=== PATIENT | female | born 1970 | race Caucasian/White ===

== ENCOUNTER 2024-02-01 12:40 | Emergency (ER) | payer MEDICARE, BC ==
[2024-02-01] MEDS: Ondansetron 4 MG/2 ML SDV IVPUSH ONE ×2 (14:06→17:34)
[2024-02-01] MEDS: fentaNYL 50 MCG/ML SDV IVPUSH ONE ×2 (14:06→16:14)
[2024-02-01] MEDS: Sodium Chloride 0.9% 1,000 ML IV ONE (14:06)
[2024-02-01 14:20] LABS: BASOPHILS ABSOLUTE AUTO 0.04 K/uL (0.00-0.20); BASOPHILS PERCENT AUTO 0.5 % (0.0-1.0); EOSINOPHILS PERCENT AUTO 2.6 % (0.0-6.0); HEMATOCRIT 40.3 % (37.0-47.0); HEMOGLOBIN 13.9 g/dL (12.0-16.0); IMMATURE GRAN ABSOLUTE AUTO 0.03 K/uL (0.00-0.05); IMMATURE GRAN PERCENT AUTO 0.4 % (0.0-0.4); LYMPHOCYTES ABSOLUTE AUTO 2.45 K/uL (1.00-4.80); LYMPHOCYTES PERCENT AUTO 31.8 % (24.0-44.0); MEAN CORPUSCULAR HGB CONC 34.5 g/dL (32.0-36.0); MEAN CORPUSCULAR VOLUME 89.8 fL (83.0-99.0); MEAN PLATELET VOLUME 9.8 fL (9.4-12.3); MONOCYTES ABSOLUTE AUTO 0.52 K/uL (0.00-0.80); MONOCYTES PERCENT AUTO 6.7 % (0.0-8.0); NEUTROPHILS ABSOLUTE AUTO 4.47 K/uL (1.80-7.70); PLATELET COUNT,PLT 268 K/uL (150-400); RED BLOOD CELL COUNT 4.49 M/uL (4.10-5.30); WHITE BLOOD CELL COUNT,WBC 7.71 K/uL (3.9-11.3)
[2024-02-01 14:26] LABS: APPEARANCE,URINE CLEAR; BILIRUBIN,URINE NEGATIVE (NEGATIVE); COLOR,URINE YELLOW; GLUCOSE,URINE NEGATIVE (NEGATIVE); KETONES,URINE NEGATIVE (NEGATIVE); LEUKOCYTE ESTERASE,URINE NEGATIVE (NEGATIVE); NITRITE,URINE NEGATIVE (NEGATIVE); OCCULT BLOOD,URINE NEGATIVE (NEGATIVE); PH,URINE 6.5 (5.0-8.0); PROTEIN,URINE NEGATIVE (NEGATIVE); UROBILINOGEN,URINE 0.2 EU/dL (<2.0)
[2024-02-01 14:46] LABS: A/G RATIO 0.9 (0.9-1.6); ALBUMIN 3.4 g/dL (3.4-5.0); BILIRUBIN TOTAL 0.2 mg/dL (0.2-1.0); CALCIUM 8.4 mg/dL (8.5-10.1); CARBON DIOXIDE,CO2 25.7 mmol/L (21.0-32.0); CREATININE 1.1 mg/dL (0.6-1.0); EST CRCL DRUG DOSING (CG) 45.7 mL/min; POTASSIUM,K 3.9 mmol/L (3.5-5.1); PROTEIN TOTAL,TP 7.1 g/dL (6.4-8.2)
[2024-02-01 17:24] LABS: RBC,CSF 0 /uL (0-0); WBC,CSF 0 /uL (0-5)
[2024-02-01 19:29] LABS: APPEARANCE CSF CLEAR; COLOR,CSF COLORLESS
[2024-02-01] MEDS: Acetaminophen/Butalbital/Caffeine 325-50-40 MG Tab PO ONE (20:07)
== END 2024-02-01 20:21 | disposition home or self-care (01) ==
LOC: MW.ED 12:40
DX: G93.2 Benign intracranial hypertension (principal); Z88.5 Allergy status to narcotic agent; Z88.8 Allergy status to other drugs, medicaments and biological substances; Z79.899 Other long term (current) drug therapy
CPT/HCPCS: 36415; 62270; 70450; 80053; 81003; 82945; 84157; 85025; 87070; 87205; 89050; 96361; 96374; 96375; 96376; 99284; A9270; J2405; J3010; J7030

== ENCOUNTER 2024-02-01 23:09 | Emergency (ER) | payer BC, MEDICARE ==
[2024-02-02] MEDS: Sodium Chloride 0.9% 1,000 ML IV ONE ×2 (00:51→01:07)
[2024-02-02] MEDS: Magnesium Sulfate/Water 2 GM in Premix Bag 1 BAG IV ONE (00:52)
[2024-02-02] MEDS: Metoclopramide 10 MG/2 ML SDV IVPUSH ONE (00:52)
[2024-02-02] MEDS: Ketorolac 30 MG/ML SDV IVPUSH ONE (00:52)
[2024-02-02] MEDS: diphenhydrAMINE 50 MG/ML SDV IVPUSH ONE (00:52)
[2024-02-02 01:24] LABS: BASOPHILS ABSOLUTE AUTO 0.05 K/uL (0.00-0.20); BASOPHILS PERCENT AUTO 0.7 % (0.0-1.0); EOSINOPHILS ABSOLUTE AUTO 0.17 K/uL (0.00-0.45); EOSINOPHILS PERCENT AUTO 2.2 % (0.0-6.0); HEMATOCRIT 36.7 % (37.0-47.0); HEMOGLOBIN 12.4 g/dL (12.0-16.0); IMMATURE GRAN ABSOLUTE AUTO 0.03 K/uL (0.00-0.05); IMMATURE GRAN PERCENT AUTO 0.4 % (0.0-0.4); LYMPHOCYTES PERCENT AUTO 34.1 % (24.0-44.0); MEAN CORPUSCULAR HEMOGLOBIN 30.8 pg (28.0-32.0); MEAN CORPUSCULAR HGB CONC 33.8 g/dL (32.0-36.0); MEAN CORPUSCULAR VOLUME 91.1 fL (83.0-99.0); MONOCYTES ABSOLUTE AUTO 0.58 K/uL (0.00-0.80); MONOCYTES PERCENT AUTO 7.6 % (0.0-8.0); PLATELET COUNT,PLT 253 K/uL (150-400); RED BLOOD CELL COUNT 4.03 M/uL (4.10-5.30); WHITE BLOOD CELL COUNT,WBC 7.63 K/uL (3.9-11.3)
[2024-02-02 02:03] LABS: A/G RATIO 0.9 (0.9-1.6); ALBUMIN 2.9 g/dL (3.4-5.0); BILIRUBIN TOTAL 0.2 mg/dL (0.2-1.0); CALCIUM 7.7 mg/dL (8.5-10.1); CREATININE 1.1 mg/dL (0.6-1.0); EST CRCL DRUG DOSING (CG) 45.7 mL/min; POTASSIUM,K 3.6 mmol/L (3.5-5.1)
== END 2024-02-02 02:26 | disposition home or self-care (01) ==
LOC: MW.ED 23:09
DX: G93.2 Benign intracranial hypertension (principal); Z88.5 Allergy status to narcotic agent; Z88.8 Allergy status to other drugs, medicaments and biological substances; Z79.899 Other long term (current) drug therapy; Z86.19 Personal history of other infectious and parasitic diseases; Z75.8 Other problems related to medical facilities and other health care
CPT/HCPCS: 36415; 70450; 80053; 83735; 85025; 96365; 96375; 99284; J1200; J1885; J2765; J3475; J7030

== ENCOUNTER 2024-02-16 02:57 | Emergency (ER) | payer MEDICARE, BC ==
[2024-02-16] MEDS: Metoclopramide 10 MG/2 ML SDV IVPUSH ONE (03:30)
[2024-02-16] MEDS: Sodium Chloride 0.9% 1,000 ML IV ONE (03:30)
[2024-02-16] MEDS: HYDROmorphone 1 MG/ML Syringe IVPUSH ONE (03:30)
[2024-02-16 03:31] LABS: BASOPHILS ABSOLUTE AUTO 0.05 K/uL (0.00-0.20); BASOPHILS PERCENT AUTO 0.7 % (0.0-1.0); EOSINOPHILS ABSOLUTE AUTO 0.29 K/uL (0.00-0.45); EOSINOPHILS PERCENT AUTO 4.3 % (0.0-6.0); HEMATOCRIT 39.7 % (37.0-47.0); HEMOGLOBIN 13.4 g/dL (12.0-16.0); IMMATURE GRAN ABSOLUTE AUTO 0.01 K/uL (0.00-0.05); IMMATURE GRAN PERCENT AUTO 0.1 % (0.0-0.4); LYMPHOCYTES PERCENT AUTO 37.5 % (24.0-44.0); MEAN CORPUSCULAR HEMOGLOBIN 30.5 pg (28.0-32.0); MEAN CORPUSCULAR HGB CONC 33.8 g/dL (32.0-36.0); MEAN CORPUSCULAR VOLUME 90.2 fL (83.0-99.0); MEAN PLATELET VOLUME 9.8 fL (9.4-12.3); MONOCYTES ABSOLUTE AUTO 0.53 K/uL (0.00-0.80); MONOCYTES PERCENT AUTO 7.9 % (0.0-8.0); NEUTROPHILS ABSOLUTE AUTO 3.29 K/uL (1.80-7.70); NEUTROPHILS PERCENT AUTO 49.5 % (41.0-71.0); PLATELET COUNT,PLT 277 K/uL (150-400); WHITE BLOOD CELL COUNT,WBC 6.67 K/uL (3.9-11.3)
[2024-02-16 03:47] LABS: INR 0.97 (0.86-1.11)
[2024-02-16 03:52] LABS: ALBUMIN 3.6 g/dL (3.4-5.0); BILIRUBIN TOTAL 0.4 mg/dL (0.2-1.0); CALCIUM 8.9 mg/dL (8.5-10.1); CARBON DIOXIDE,CO2 24.5 mmol/L (21.0-32.0); EST CRCL DRUG DOSING (CG) 54.89 mL/min; POTASSIUM,K 3.3 mmol/L (3.5-5.1); PROTEIN TOTAL,TP 7.1 g/dL (6.4-8.2)
[2024-02-16 05:10] LABS: APPEARANCE CSF CLEAR; COLOR,CSF COLORLESS
[2024-02-16 05:17] LABS: WBC,CSF 0 /uL (0-5)
[2024-02-16 05:18] LABS: RBC,CSF 1 /uL (0-0)
[2024-02-16 05:19] LABS: RBC,CSF 0 /uL (0-0); WBC,CSF 0 /uL (0-5)
== END 2024-02-16 05:44 | disposition home or self-care (01) ==
LOC: MW.ED 02:57
DX: R51.9 Headache, unspecified (principal); Z88.5 Allergy status to narcotic agent; Z88.8 Allergy status to other drugs, medicaments and biological substances; Z79.899 Other long term (current) drug therapy
CPT/HCPCS: 36415; 62270; 80053; 82945; 82947; 84157; 85025; 85610; 87070; 87205; 89050; 96361; 96374; 96375; 99284; J1170; J2765; J7030

== ENCOUNTER 2024-03-22 17:11 | Emergency (ER) | payer BC, MEDICARE ==
[2024-03-22 17:28] LABS: BASOPHILS ABSOLUTE AUTO 0.03 K/uL (0.00-0.20); BASOPHILS PERCENT AUTO 0.4 % (0.0-1.0); EOSINOPHILS ABSOLUTE AUTO 0.19 K/uL (0.00-0.45); EOSINOPHILS PERCENT AUTO 2.7 % (0.0-6.0); HEMOGLOBIN 14.6 g/dL (12.0-16.0); IMMATURE GRAN ABSOLUTE AUTO 0.01 K/uL (0.00-0.05); IMMATURE GRAN PERCENT AUTO 0.1 % (0.0-0.4); LYMPHOCYTES ABSOLUTE AUTO 2.48 K/uL (1.00-4.80); LYMPHOCYTES PERCENT AUTO 35.7 % (24.0-44.0); MEAN CORPUSCULAR VOLUME 88.3 fL (83.0-99.0); MEAN PLATELET VOLUME 10.1 fL (9.4-12.3); MONOCYTES PERCENT AUTO 7.2 % (0.0-8.0); NEUTROPHILS ABSOLUTE AUTO 3.74 K/uL (1.80-7.70); NEUTROPHILS PERCENT AUTO 53.9 % (41.0-71.0); PLATELET COUNT,PLT 295 K/uL (150-400); RED BLOOD CELL COUNT 4.87 M/uL (4.10-5.30); WHITE BLOOD CELL COUNT,WBC 6.95 K/uL (3.9-11.3)
[2024-03-22] MEDS: Metoclopramide 10 MG/2 ML SDV IVPUSH ONE (17:33)
[2024-03-22] MEDS: Sodium Chloride 0.9% 1,000 ML IV ONE (17:33)
[2024-03-22] MEDS: HYDROmorphone 1 MG/ML Syringe IVPUSH ONE (17:33)
[2024-03-22 17:59] LABS: A/G RATIO 1.1 (0.9-1.6); ALBUMIN 4.1 g/dL (3.4-5.0); BILIRUBIN TOTAL 0.3 mg/dL (0.2-1.0); CALCIUM 8.6 mg/dL (8.5-10.1); CARBON DIOXIDE,CO2 28.2 mmol/L (21.0-32.0); EST CRCL DRUG DOSING (CG) 52.58 mL/min; POTASSIUM,K 3.5 mmol/L (3.5-5.1); PROTEIN TOTAL,TP 7.9 g/dL (6.4-8.2)
[2024-03-22] MEDS: HYDROmorphone 0.5 MG/0.5 ML Syringe IVPUSH ONE (20:08)
[2024-03-22 20:53] LABS: APPEARANCE CSF CLEAR; COLOR,CSF COLORLESS; RBC,CSF 3 /uL (0-0); WBC,CSF 0 /uL (0-5)
== END 2024-03-22 21:57 | disposition home or self-care (01) ==
LOC: MW.ED 17:11
DX: G93.2 Benign intracranial hypertension (principal); Z90.49 Acquired absence of other specified parts of digestive tract; Z90.710 Acquired absence of both cervix and uterus; Z75.8 Other problems related to medical facilities and other health care; Z79.899 Other long term (current) drug therapy; Z88.5 Allergy status to narcotic agent; Z88.8 Allergy status to other drugs, medicaments and biological substances
CPT/HCPCS: 36415; 80053; 82945; 84157; 85025; 87070; 87205; 89050; 96361; 96374; 96375; 96376; 99284; J1170; J2765; J7030

== ENCOUNTER 2024-04-07 11:23 | Emergency (ER) | payer BC, MEDICARE ==
[2024-04-07] MEDS: Sodium Chloride 0.9% 1,000 ML IV ONE (12:17)
[2024-04-07] MEDS: Metoclopramide 10 MG/2 ML SDV IVPUSH ONE (12:18)
[2024-04-07] MEDS: HYDROmorphone 1 MG/ML Syringe IVPUSH ONE ×2 (12:23→15:24)
[2024-04-07 13:09] LABS: BASOPHILS ABSOLUTE AUTO 0.04 K/uL (0.00-0.20); BASOPHILS PERCENT AUTO 0.6 % (0.0-1.0); EOSINOPHILS ABSOLUTE AUTO 0.13 K/uL (0.00-0.45); EOSINOPHILS PERCENT AUTO 1.8 % (0.0-6.0); HEMATOCRIT 41.1 % (37.0-47.0); HEMOGLOBIN 14.1 g/dL (12.0-16.0); IMMATURE GRAN ABSOLUTE AUTO 0.02 K/uL (0.00-0.05); IMMATURE GRAN PERCENT AUTO 0.3 % (0.0-0.4); LYMPHOCYTES ABSOLUTE AUTO 2.23 K/uL (1.00-4.80); LYMPHOCYTES PERCENT AUTO 31.5 % (24.0-44.0); MEAN CORPUSCULAR HEMOGLOBIN 29.3 pg (28.0-32.0); MEAN CORPUSCULAR HGB CONC 34.3 g/dL (32.0-36.0); MEAN CORPUSCULAR VOLUME 85.4 fL (83.0-99.0); MEAN PLATELET VOLUME 10.4 fL (9.4-12.3); MONOCYTES ABSOLUTE AUTO 0.55 K/uL (0.00-0.80); MONOCYTES PERCENT AUTO 7.8 % (0.0-8.0); PLATELET COUNT,PLT 277 K/uL (150-400); RED BLOOD CELL COUNT 4.81 M/uL (4.10-5.30); WHITE BLOOD CELL COUNT,WBC 7.07 K/uL (3.9-11.3)
[2024-04-07 13:16] LABS: INR 1.05 (0.86-1.11)
[2024-04-07] MEDS: Gadobenate Dimeglumine 529 MG/ML 20 ML SDV IVPUSH ONE (13:16)
[2024-04-07 13:20] LABS: A/G RATIO 1.1 (0.9-1.6); ALBUMIN 3.8 g/dL (3.4-5.0); BILIRUBIN TOTAL 0.5 mg/dL (0.2-1.0); CALCIUM 8.7 mg/dL (8.5-10.1); CARBON DIOXIDE,CO2 27.7 mmol/L (21.0-32.0); CREATININE 0.7 mg/dL (0.6-1.0); EST CRCL DRUG DOSING (CG) 75.12 mL/min; POTASSIUM,K 3.8 mmol/L (3.5-5.1); PROTEIN TOTAL,TP 7.2 g/dL (6.4-8.2)
[2024-04-07] MEDS: Promethazine 25 MG/ML SDV IM ONE (14:14)
[2024-04-07] MEDS: Iopamidol 755 MG/ML 500 ML Multipack Bottle IVPUSH STA (15:36)
[2024-04-07] MEDS: diphenhydrAMINE 50 MG/ML SDV IVPUSH STA (17:16)
[2024-04-07 17:24] LABS: CORONAVIRUS COVID-19 NAA NEGATIVE (NEGATIVE); INFLUENZA A NAA NEGATIVE (NEGATIVE); INFLUENZA B NAA NEGATIVE (NEGATIVE); RESPIRATORY SYNCYTIAL VIR NAA NEGATIVE (NEGATIVE)
[2024-04-07 19:02] LABS: RBC,CSF 0 /uL (0-0); WBC,CSF 0 /uL (0-5)
[2024-04-07 19:04] LABS: APPEARANCE CSF CLEAR; COLOR,CSF COLORLESS
[2024-04-07 19:25] LABS: APPEARANCE CSF CLEAR; COLOR,CSF COLORLESS; RBC,CSF 0 /uL (0-0); WBC,CSF 1 /uL (0-5)
== END 2024-04-07 19:22 | disposition home or self-care (01) ==
LOC: MW.ED 11:23
DX: R51.9 Headache, unspecified (principal); Z88.5 Allergy status to narcotic agent; Z79.899 Other long term (current) drug therapy; Z86.16 Personal history of COVID-19; Z90.710 Acquired absence of both cervix and uterus; Z90.49 Acquired absence of other specified parts of digestive tract; Z87.891 Personal history of nicotine dependence
CPT/HCPCS: 0241U; 36415; 62270; 70460; 70553; 71045; 80053; 82945; 84157; 85025; 85610; 87070; 87205; 89050; 96361; 96372; 96374; 96375; 96376; 99284; A9577; J1170; J1200; J2550; J2765; J7030; Q9967

== ENCOUNTER 2024-09-16 15:20 | Emergency (ER) | payer BC, MEDICARE ==
[2024-09-16] MEDS: Prochlorperazine 10 MG/2 ML SDV IVPUSH ONE (17:15)
[2024-09-16] MEDS: Ketorolac 30 MG/ML SDV IVPUSH ONE (17:15)
[2024-09-16] MEDS: Sodium Chloride 0.9% 1,000 ML IV ONE (17:15)
[2024-09-16] MEDS: diphenhydrAMINE 50 MG/ML SDV IVPUSH ONE (17:15)
[2024-09-16 17:27] LABS: BASOPHILS ABSOLUTE AUTO 0.05 K/uL (0.00-0.20); BASOPHILS PERCENT AUTO 0.7 % (0.0-1.0); EOSINOPHILS PERCENT AUTO 2.9 % (0.0-6.0); HEMATOCRIT 41.2 % (37.0-47.0); HEMOGLOBIN 14.6 g/dL (12.0-16.0); IMMATURE GRAN ABSOLUTE AUTO 0.01 K/uL (0.00-0.05); IMMATURE GRAN PERCENT AUTO 0.1 % (0.0-0.4); LYMPHOCYTES ABSOLUTE AUTO 2.14 K/uL (1.00-4.80); LYMPHOCYTES PERCENT AUTO 30.7 % (24.0-44.0); MEAN CORPUSCULAR HEMOGLOBIN 30.5 pg (28.0-32.0); MEAN CORPUSCULAR HGB CONC 35.4 g/dL (32.0-36.0); MEAN CORPUSCULAR VOLUME 86.2 fL (83.0-99.0); MEAN PLATELET VOLUME 10.1 fL (9.4-12.3); MONOCYTES ABSOLUTE AUTO 0.43 K/uL (0.00-0.80); MONOCYTES PERCENT AUTO 6.2 % (0.0-8.0); NEUTROPHILS ABSOLUTE AUTO 4.13 K/uL (1.80-7.70); NEUTROPHILS PERCENT AUTO 59.4 % (41.0-71.0); PLATELET COUNT,PLT 249 K/uL (150-400); RED BLOOD CELL COUNT 4.78 M/uL (4.10-5.30); WHITE BLOOD CELL COUNT,WBC 6.96 K/uL (3.9-11.3)
[2024-09-16 18:05] LABS: CALCIUM 8.8 mg/dL (8.5-10.1); CARBON DIOXIDE,CO2 20.6 mmol/L (21.0-32.0); EST CRCL DRUG DOSING (CG) 51.96 mL/min; POTASSIUM,K 3.6 mmol/L (3.5-5.1)
== END 2024-09-16 19:36 | disposition home or self-care (01) ==
LOC: MW.ED 15:20
DX: R51.9 Headache, unspecified (principal); Z90.49 Acquired absence of other specified parts of digestive tract; Z90.710 Acquired absence of both cervix and uterus; Z88.5 Allergy status to narcotic agent; Z88.8 Allergy status to other drugs, medicaments and biological substances
CPT/HCPCS: 36415; 80048; 85025; 96361; 96374; 96375; 99284; J0780; J1200; J1885; J7030; 99283

== ENCOUNTER 2025-06-08 12:58 | Emergency (ER) | payer MEDICARE, BC ==
[2025-06-08] MEDS: Ketorolac 30 MG/ML SDV IM ONE (15:00)
[2025-06-08 15:20] LABS: BASOPHILS ABSOLUTE AUTO 0.02 K/uL (0.00-0.20); BASOPHILS PERCENT AUTO 0.3 % (0.0-1.0); EOSINOPHILS ABSOLUTE AUTO 0.15 K/uL (0.00-0.45); EOSINOPHILS PERCENT AUTO 2.6 % (0.0-6.0); IMMATURE GRAN ABSOLUTE AUTO 0.01 K/uL (0.00-0.05); IMMATURE GRAN PERCENT AUTO 0.2 % (0.0-0.4); LYMPHOCYTES ABSOLUTE AUTO 2.07 K/uL (1.00-4.80); LYMPHOCYTES PERCENT AUTO 36.0 % (24.0-44.0); MEAN PLATELET VOLUME 10.2 fL (9.4-12.3); MONOCYTES ABSOLUTE AUTO 0.40 K/uL (0.00-0.80); MONOCYTES PERCENT AUTO 7.0 % (0.0-8.0); NEUTROPHILS ABSOLUTE AUTO 3.10 K/uL (1.80-7.70); NEUTROPHILS PERCENT AUTO 53.9 % (41.0-71.0); NRBC ABSOLUTE 0.00 K/uL (0.00-0.02); NRBC PERCENT 0.0 /100WBC (0.0-0.2); PLATELET COUNT,PLT 226 K/uL (150-400); RED BLOOD CELL COUNT 4.77 M/uL (4.10-5.30); WHITE BLOOD CELL COUNT,WBC 5.75 K/uL (3.9-11.3)
[2025-06-08 15:50] LABS: BLOOD UREA NITROGEN,BUN 12.0 mg/dL (7.0-18.0); CARBON DIOXIDE,CO2 30.4 mmol/L (21.0-32.0); CHLORIDE,CL 106.0 mmol/L (98-107); CREATININE 0.7 mg/dL (0.6-1.0); EST CRCL DRUG DOSING (CG) 74.23 mL/min; GLUCOSE RANDOM 99.0 mg/dL (74-106); POTASSIUM,K 4.4 mmol/L (3.5-5.1); SODIUM,NA 145.0 mmol/L (136-145)
[2025-06-08 15:51] LABS: ESTIMATED GFR 101.0 mL/min (>60)
[2025-06-08] MEDS: Acetaminophen/HYDROcodone 325-5 MG Tab PO ONE (16:39)
[2025-06-08] MEDS: Ondansetron 4 MG Tab.DIS PO ONE (16:39)
== END 2025-06-08 17:15 | disposition home or self-care (01) ==
LOC: MW.ED 12:58
DX: M54.2 Cervicalgia (principal); Z88.8 Allergy status to other drugs, medicaments and biological substances; Z79.899 Other long term (current) drug therapy; Z90.49 Acquired absence of other specified parts of digestive tract; Z90.710 Acquired absence of both cervix and uterus
CPT/HCPCS: 36415; 72125; 80048; 84484; 85025; 93005; 96372; 99284; A9270; J1885; 93010

== ENCOUNTER 2025-06-23 09:48 | Day surgery (SDC) | payer BC, MEDICARE ==
[2025-06-23] MEDS: Lactated Ringers 1,000 ML IV SCH (10:15)
[2025-06-23] MEDS ORDERED: Ondansetron 4 MG/2 ML SDV ONE (10:39)
[2025-06-23] MEDS ORDERED: dexmedeTOMIDine HCl 200 MCG/2 ML SDV ONE (10:39)
[2025-06-23] MEDS ORDERED: propofoL 500 MG/50 ML 50 ML ONE ×2 (11:17→11:36)
[2025-06-23] MEDS ORDERED: Lactated Ringers 1,000 ML IV SCH (12:15)
== END 2025-06-23 13:00 | disposition home or self-care (01) ==
LOC: MW.SDS 09:48
PROVIDERS: ATTEND Surgery
DX: K29.80 Duodenitis without bleeding (principal); K29.50 Unspecified chronic gastritis without bleeding; K29.00 Acute gastritis without bleeding; K31.7 Polyp of stomach and duodenum; K21.00 Gastro-esophageal reflux disease with esophagitis, without bleeding; I10 Essential (primary) hypertension; Z88.5 Allergy status to narcotic agent; Z79.899 Other long term (current) drug therapy; Z87.891 Personal history of nicotine dependence; Z86.0100 Personal history of colon polyps, unspecified
CPT/HCPCS: 43239; 45378; J2405; J2704; J7120; 88305

== ENCOUNTER 2025-07-02 09:00 | Emergency (ER) | payer BC, MEDICARE ==
[2025-07-02] MEDS ORDERED: Sodium Chloride 0.9% 10 ML Syringe FLUSH PRN (09:12)
[2025-07-02] MEDS ORDERED: Sodium Chloride 0.9% 2.5 ML Syringe FLUSH PRN (09:12)
[2025-07-02 09:19] LABS: BASOPHILS ABSOLUTE AUTO 0.04 K/uL (0.00-0.20); BASOPHILS PERCENT AUTO 0.6 % (0.0-1.0); EOSINOPHILS ABSOLUTE AUTO 0.11 K/uL (0.00-0.45); EOSINOPHILS PERCENT AUTO 1.8 % (0.0-6.0); IMMATURE GRAN ABSOLUTE AUTO 0.00 K/uL (0.00-0.05); IMMATURE GRAN PERCENT AUTO 0.0 % (0.0-0.4); LYMPHOCYTES ABSOLUTE AUTO 2.40 K/uL (1.00-4.80); LYMPHOCYTES PERCENT AUTO 38.9 % (24.0-44.0); MEAN PLATELET VOLUME 9.9 fL (9.4-12.3); MONOCYTES ABSOLUTE AUTO 0.40 K/uL (0.00-0.80); MONOCYTES PERCENT AUTO 6.5 % (0.0-8.0); NEUTROPHILS ABSOLUTE AUTO 3.22 K/uL (1.80-7.70); NEUTROPHILS PERCENT AUTO 52.2 % (41.0-71.0); NRBC ABSOLUTE 0.00 K/uL (0.00-0.02); NRBC PERCENT 0.0 /100WBC (0.0-0.2); PLATELET COUNT,PLT 272 K/uL (150-400); RED BLOOD CELL COUNT 5.02 M/uL (4.10-5.30); WHITE BLOOD CELL COUNT,WBC 6.17 K/uL (3.9-11.3)
[2025-07-02 09:38] LABS: D-DIMER QUANTITATIVE 0.2 mg/L FEU (0.00-0.50); INR 0.97 (0.86-1.11); PTT,PARTIAL THROMBOPLSTIN TIME 26.4 SEC (23.9-30.7)
[2025-07-02 09:47] LABS: A/G RATIO 1.1 (0.9-1.6); ALANINE AMINOTRANSFERASE,ALT 23.0 IU/L (14-63); ASPARTATE AMNIOTRANSFERASE,AST 15.0 IU/L (15-37); BILIRUBIN TOTAL 0.3 mg/dL (0.2-1.0); BLOOD UREA NITROGEN,BUN 12.0 mg/dL (7.0-18.0); CARBON DIOXIDE,CO2 29.4 mmol/L (21.0-32.0); CHLORIDE,CL 103.0 mmol/L (98-107); CREATININE 0.8 mg/dL (0.6-1.0); EST CRCL DRUG DOSING (CG) 64.95 mL/min; GLUCOSE RANDOM 106.0 mg/dL (74-106); POTASSIUM,K 3.7 mmol/L (3.5-5.1); PRO B-TYPE NATRIUR PEPT,BNPPRO 119.0 pg/mL (0-125); PROTEIN TOTAL,TP 7.5 g/dL (6.4-8.2); SODIUM,NA 142.0 mmol/L (136-145)
[2025-07-02 09:48] LABS: ESTIMATED GFR 86.0 mL/min (>60)
[2025-07-02] MEDS: Ondansetron 4 MG/2 ML SDV IVPUSH ONE (09:53)
[2025-07-02] MEDS ORDERED: Naloxone 0.4 MG/ML SDV IVPUSH PRN (10:06)
[2025-07-02] MEDS: Alum Hydrox/Mag Hydrox/Simeth 15 ML, Lidocaine 2% 5 ML PO ONE (10:49)
[2025-07-02] MEDS: Iopamidol 755 Mg/ML 100 ML Bottle IVPUSH ONE (11:09)
[2025-07-02 14:14] LABS: APPEARANCE,URINE CLEAR; GLUCOSE,URINE NEGATIVE (NEGATIVE); OCCULT BLOOD,URINE NEGATIVE (NEGATIVE)
== END 2025-07-02 15:45 | disposition home or self-care (01) ==
LOC: MW.ED 09:00
DX: R10.13 Epigastric pain (principal); R10.11 Right upper quadrant pain; I10 Essential (primary) hypertension; E66.9 Obesity, unspecified; Z88.8 Allergy status to other drugs, medicaments and biological substances; Z79.899 Other long term (current) drug therapy; Z90.49 Acquired absence of other specified parts of digestive tract; Z90.710 Acquired absence of both cervix and uterus; Z68.30 Body mass index [BMI] 30.0-30.9, adult
CPT/HCPCS: 36415; 71046; 71260; 74177; 76705; 76830; 76856; 80053; 81003; 82977; 83605; 83690; 83735; 83880; 84484; 84702; 84703; 85025; 85379; 85610; 85730; 96361; 96374; 96375; 96376; 99285; A9270; J2405; J3490; J7030; Q9967; J1171

== ENCOUNTER 2025-07-12 06:18 | Observation (INO) | payer BC, MEDICARE ==
[2025-07-12] MEDS ORDERED: Ropivacaine 0.5% 5 MG/ML 30 ML SDV ONE (06:42)
[2025-07-12] MEDS ORDERED: dexmedeTOMIDine HCl 200 MCG/2 ML SDV ONE (06:43)
[2025-07-12] MEDS: Lactated Ringers 1,000 ML IV SCH (06:53)
[2025-07-12] MEDS ORDERED: fentaNYL 100 MCG/2 ML SDV ONE (06:56)
[2025-07-12] MEDS ORDERED: Propofol 200 MG/20 ML SDV ONE (06:58)
[2025-07-12] MEDS ORDERED: Midazolam 1 MG/ML 2 ML SDV ONE (07:10)
[2025-07-12] MEDS ORDERED: propofoL 500 MG/50 ML 50 ML ONE (07:28)
[2025-07-12] MEDS ORDERED: Bupivacaine 0.5%/EPINEPHrine 1:200,000 30 ML SDV ONE (07:37)
[2025-07-12] MEDS ORDERED: Lidocaine 2% 11 ML Jelly Filled Syringe ONE (07:48)
[2025-07-12] MEDS ORDERED: Naloxone 0.4 MG/ML SDV IVPUSH PRN (07:50)
[2025-07-12] MEDS ORDERED: Albuterol 0.083% 2.5 MG/3 ML Neb Soln NEB PRN (07:50)
[2025-07-12] MEDS ORDERED: ePHEDrine 50 MG/ML SDV ONE (08:06)
[2025-07-12] MEDS ORDERED: Ondansetron 4 MG/2 ML SDV ONE (09:18)
[2025-07-12] MEDS: fentaNYL 50 MCG/ML SDV IVPUSH PRN (11:39)
[2025-07-12] MEDS: ceFAZolin 2 GM in Water For Injection, Sterile 20 ML IVPUSH ONE (13:54)
[2025-07-12] MEDS: Acetaminophen/HYDROcodone 325-5 MG Tab PO PRN (16:06)
[2025-07-13] MEDS: Ondansetron 4 MG/2 ML SDV IVPUSH PRN (04:38)
[2025-07-13] MEDS ORDERED: propofoL 500 MG/50 ML 50 ML ONE (10:40)
== END 2025-07-13 08:45 | disposition home or self-care (01) ==
LOC: MW.SDS 06:18 → MW.MS 12:36
PROVIDERS: ADMIT Orthopaedic Surgery; ATTEND Orthopaedic Surgery
DX: M75.101 Unspecified rotator cuff tear or rupture of right shoulder, not specified as traumatic (principal); I10 Essential (primary) hypertension; E66.9 Obesity, unspecified; Z88.5 Allergy status to narcotic agent; Z98.890 Other specified postprocedural states; Z79.899 Other long term (current) drug therapy; Z87.891 Personal history of nicotine dependence; Z68.30 Body mass index [BMI] 30.0-30.9, adult
CPT/HCPCS: 29827; 64415; 71045; 94640; A9270; C1713; J0166; J0665; J2003; J2250; J2270; J2405; J2704; J2795; J3010; J7120; J7620; J7999; 01630; J2371; J3490

== ENCOUNTER 2025-07-26 20:05 | Emergency (ER) | payer MEDICARE ==
[2025-07-26] MEDS ORDERED: Sodium Chloride 0.9% 10 ML Syringe FLUSH PRN (21:06)
[2025-07-26] MEDS ORDERED: Sodium Chloride 0.9% 2.5 ML Syringe FLUSH PRN (21:06)
[2025-07-26 21:27] LABS: BASOPHILS ABSOLUTE AUTO 0.03 K/uL (0.00-0.20); BASOPHILS PERCENT AUTO 0.4 % (0.0-1.0); EOSINOPHILS ABSOLUTE AUTO 0.20 K/uL (0.00-0.45); EOSINOPHILS PERCENT AUTO 2.5 % (0.0-6.0); IMMATURE GRAN ABSOLUTE AUTO 0.01 K/uL (0.00-0.05); IMMATURE GRAN PERCENT AUTO 0.1 % (0.0-0.4); LYMPHOCYTES ABSOLUTE AUTO 2.08 K/uL (1.00-4.80); LYMPHOCYTES PERCENT AUTO 25.5 % (24.0-44.0); MEAN PLATELET VOLUME 9.7 fL (9.4-12.3); MONOCYTES ABSOLUTE AUTO 0.58 K/uL (0.00-0.80); MONOCYTES PERCENT AUTO 7.1 % (0.0-8.0); NEUTROPHILS ABSOLUTE AUTO 5.26 K/uL (1.80-7.70); NEUTROPHILS PERCENT AUTO 64.4 % (41.0-71.0); NRBC ABSOLUTE 0.00 K/uL (0.00-0.02); NRBC PERCENT 0.0 /100WBC (0.0-0.2); PLATELET COUNT,PLT 235 K/uL (150-400); RED BLOOD CELL COUNT 4.54 M/uL (4.10-5.30); WHITE BLOOD CELL COUNT,WBC 8.16 K/uL (3.9-11.3)
[2025-07-26 21:40] LABS: D-DIMER QUANTITATIVE 0.52 mg/L FEU (0.00-0.50); INR 0.96 (0.86-1.11)
[2025-07-26 21:58] LABS: A/G RATIO 1.1 (0.9-1.6); ALANINE AMINOTRANSFERASE,ALT 23.0 IU/L (14-63); ASPARTATE AMNIOTRANSFERASE,AST 14.0 IU/L (15-37); BILIRUBIN TOTAL 0.3 mg/dL (0.2-1.0); BLOOD UREA NITROGEN,BUN 15.0 mg/dL (7.0-18.0); CARBON DIOXIDE,CO2 32.0 mmol/L (21.0-32.0); CHLORIDE,CL 102.0 mmol/L (98-107); CREATININE 0.7 mg/dL (0.6-1.0); EST CRCL DRUG DOSING (CG) 73.35 mL/min; GLUCOSE RANDOM 101.0 mg/dL (74-106); POTASSIUM,K 3.7 mmol/L (3.5-5.1); PRO B-TYPE NATRIUR PEPT,BNPPRO 18.0 pg/mL (0-125); PROTEIN TOTAL,TP 7.3 g/dL (6.4-8.2); SODIUM,NA 141.0 mmol/L (136-145)
[2025-07-26 22:04] LABS: ESTIMATED GFR 101.0 mL/min (>60)
[2025-07-26] MEDS: Iopamidol 755 MG/ML 500 ML Multipack Bottle IVPUSH STA (22:54)
[2025-07-26] MEDS: Ondansetron 4 MG/2 ML SDV IVPUSH ONE (23:15)
[2025-07-26 23:19] LABS: APPEARANCE,URINE CLEAR; GLUCOSE,URINE NEGATIVE (NEGATIVE); OCCULT BLOOD,URINE NEGATIVE (NEGATIVE)
== END 2025-07-27 00:52 | disposition home or self-care (01) ==
LOC: MW.ED 20:05
DX: G89.18 Other acute postprocedural pain (principal); M54.2 Cervicalgia; R06.02 Shortness of breath; I10 Essential (primary) hypertension; J44.9 Chronic obstructive pulmonary disease, unspecified; K21.9 Gastro-esophageal reflux disease without esophagitis; E66.9 Obesity, unspecified; Z90.710 Acquired absence of both cervix and uterus; Z79.899 Other long term (current) drug therapy; Z88.5 Allergy status to narcotic agent; Z88.8 Allergy status to other drugs, medicaments and biological substances; Z68.31 Body mass index [BMI] 31.0-31.9, adult
CPT/HCPCS: 36415; 71046; 71275; 80053; 81003; 83735; 83880; 84484; 85025; 85379; 85610; 93005; 96374; 99285; J2405; Q9967; 93010; 99283